=== PATIENT | male | born 2000 | race Caucasian/White ===

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

== ENCOUNTER → 2018-07-05 | Outpatient (CLI) | payer OTHER | END | disposition home or self-care (01) | LOC: LAB EV 17:48 → LAB SHORT 17:48 | DX: J02.9 Acute pharyngitis, unspecified (principal) | CPT/HCPCS: 87070 ==

== ENCOUNTER 2018-12-20 19:13 | Emergency (ER) | payer OTHER ==
[~2018-12-20] VITALS: Ht 182.9 cm; Wt 70.3 kg
[2018-12-20] MEDS ORDERED: Amoxicillin875 MG PO (19:36)
[2018-12-21] MEDS ORDERED: IBUP600 PO (04:14)
== END 2018-12-20 19:40 | disposition home or self-care (01) ==
LOC: ER 19:13
DX: H66.91 Otitis media, unspecified, right ear (principal); Z88.8 Allergy status to other drugs, medicaments and biological substances; J45.909 Unspecified asthma, uncomplicated
CPT/HCPCS: 99282

== ENCOUNTER 2018-12-21 03:01 | Emergency (ER) | payer OTHER ==
[~2018-12-21] VITALS: Ht 182.9 cm; Wt 70.3 kg
[~2018-12-21 03:01] MED LIST changes: +Amoxicillin875 MG PO
[2018-12-21] MEDS ORDERED: IBUP600 PO (04:14)
== END 2018-12-21 04:30 | disposition home or self-care (01) ==
LOC: ER 03:01
DX: H66.91 Otitis media, unspecified, right ear (principal); H72.91 Unspecified perforation of tympanic membrane, right ear; Z88.8 Allergy status to other drugs, medicaments and biological substances
CPT/HCPCS: 99282; A9270-GY